=== PATIENT | female | born 1945 ===

== ENCOUNTER 2022-02-06 21:03 | Inpatient (IN) | payer MEDICARE ==
[2022-02-06 22:45] VITALS: BMI 30.1
[2022-02-06] MEDS ORDERED: Ondansetron PF 4 MG/2 ML Vial IVP PRN (23:59)
[2022-02-06] MEDS ORDERED: Acetaminophen 325 MG TAB PO PRN (23:59)
[2022-02-07] MEDS ORDERED: Morphine 2 MG/ML VIAL SLOW IVP PRN (00:01)
[2022-02-07] MEDS ORDERED: HumaLOG 300 UNITS/3 ML VIAL SC PRN ×2 (00:10)
[2022-02-07] MEDS ORDERED: Dextrose 5% in Water 1,000 ML IV PRN (00:10)
[2022-02-07] MEDS ORDERED: Dextrose 50% Abboject 50 ML SYRINGE SLOW IVP PRN (00:10)
[2022-02-07] MEDS ORDERED: hydrALAZINE 20 MG/ML VIAL SLOW IVP PRN ×2 (00:10→07:26)
[2022-02-07] MEDS ORDERED: Enoxaparin Sodium 40 MG/0.4 ML SYRINGE SC SCH (00:30)
[2022-02-07] MEDS: Sodium Chloride 0.9% 1,000 ML IV SCH ×3 (01:14→21:18)
[2022-02-07 07:50] LABS: #Basophils 0.1 thou/uL (0.0-0.2); #Eosinphils 0.2 thou/uL (0.0-0.7); #Lymphocytes 1.3 thou/uL (1.20-3.40); #Monocytes 1.5 thou/uL (0.11-0.59); %Basophils 0.4 % (0.0-1.0); %Eosinophils 1.5 % (0.0-10.0); %Lymphocytes 8.9 % (21.0-51.0); %Monocytes 9.6 % (0.0-10.0); %Neutrophils 79.7 % (42.0-75.0); Hemoglobin 15.1 g/dL (12.0-16.0); Mean Corpuscular HGB CONC 31.5 g/dL (32.0-36.0); Mean Corpuscular Hemoglobin 29.2 pg (27.0-31.0); Mean Corpuscular Volume 92.8 fL (78.0-98.0); Mean Platelet Volume 8.1 fL (7.4-10.4); Platelet Count 171 thou/uL (130-400); RBC Distribution Width 13.4 % (11.5-14.5); Red Blood Cell (RBC) Count 5.15 mill/uL (4.20-5.40); White Blood Cell (WBC) Count 15.1 thou/uL (4.8-10.8)
[2022-02-07 08:08] LABS: Anion Gap 14 mmol/L (10-20); BUN (Urea Nitrogen) 23 mg/dL (9.8-20.1); Calc. Creatinine Clearance 64 mL/min (70-130); Calcium 8.8 mg/dL (7.8-10.44); Carbon Dioxide 24 mmol/L (23-31); Chloride 105 mmol/L (98-107); Estimated GFR 67; Glucose 148 mg/dL (83-110); Sodium 139 mmol/L (136-145)
[2022-02-07] MEDS: Mometasone 100 MCG/PUFF (1 INHALER) INH SCH (18:24)
[2022-02-07] MEDS: traZODone HCl 50 MG TAB PO SCH (21:14)
[2022-02-08 05:54] LABS: #Eosinphils 0.2 thou/uL (0.0-0.7); #Lymphocytes 1.8 thou/uL (1.20-3.40); #Monocytes 0.9 thou/uL (0.11-0.59); #Neutrophils 6.7 thou/uL (1.40-6.50); %Basophils 0.4 % (0.0-1.0); %Eosinophils 1.7 % (0.0-10.0); %Lymphocytes 18.4 % (21.0-51.0); %Monocytes 9.7 % (0.0-10.0); %Neutrophils 69.8 % (42.0-75.0); Hemoglobin 13.2 g/dL (12.0-16.0); Mean Corpuscular HGB CONC 32.1 g/dL (32.0-36.0); Mean Corpuscular Hemoglobin 29.2 pg (27.0-31.0); Mean Platelet Volume 7.8 fL (7.4-10.4); Platelet Count 137 thou/uL (130-400); RBC Distribution Width 13.2 % (11.5-14.5); Red Blood Cell (RBC) Count 4.51 mill/uL (4.20-5.40); White Blood Cell (WBC) Count 9.6 thou/uL (4.8-10.8)
[2022-02-08] MEDS: Levothyroxine Sodium 25 MCG TAB PO SCH (06:04)
[2022-02-08 06:15] LABS: Anion Gap 11 mmol/L (10-20); BUN (Urea Nitrogen) 12 mg/dL (9.8-20.1); Calc. Creatinine Clearance 74 mL/min (70-130); Calcium 8.3 mg/dL (7.8-10.44); Carbon Dioxide 24 mmol/L (23-31); Chloride 109 mmol/L (98-107); Estimated GFR 79; Glucose 103 mg/dL (83-110); Potassium 3.6 mmol/L (3.5-5.1); Sodium 140 mmol/L (136-145)
[2022-02-08] MEDS: Mometasone 100 MCG/PUFF (1 INHALER) INH SCH ×2 (07:04→18:12)
[2022-02-08] MEDS: Sodium Chloride 0.9% 1,000 ML IV SCH ×2 (07:08→19:36)
[2022-02-08] MEDS: Pramipexole Di-HCl 0.125 MG TAB PO SCH (08:44)
[2022-02-08] MEDS: Atorvastatin Calcium 40 MG TAB PO SCH (08:45)
[2022-02-08] MEDS: Clopidogrel Bisulfate 75 MG TAB PO SCH (08:45)
[2022-02-08] MEDS ORDERED: Non-Formulary Item 1 EACH (Fluticasone/Umeclidin/Vilanter [Trelegy Ellipta 100-62.5-25] 1 INH SCH (09:00)
[2022-02-08] MEDS ORDERED: MD-Gastroview 120 ML BOT ONE (14:46)
[2022-02-08] MEDS: traZODone HCl 50 MG TAB PO SCH (20:54)
[2022-02-09] MEDS: Sodium Chloride 0.9% 1,000 ML IV SCH ×2 (02:30→10:49)
[2022-02-09] MEDS: Levothyroxine Sodium 25 MCG TAB PO SCH (06:03)
[2022-02-09 06:25] LABS: #Basophils 0.1 thou/uL (0.0-0.2); #Eosinphils 0.3 thou/uL (0.0-0.7); #Monocytes 0.9 thou/uL (0.11-0.59); #Neutrophils 7.4 thou/uL (1.40-6.50); %Basophils 0.5 % (0.0-1.0); %Eosinophils 2.6 % (0.0-10.0); %Lymphocytes 18.4 % (21.0-51.0); %Monocytes 8.6 % (0.0-10.0); %Neutrophils 69.9 % (42.0-75.0); Hemoglobin 13.2 g/dL (12.0-16.0); Mean Corpuscular HGB CONC 31.7 g/dL (32.0-36.0); Mean Corpuscular Hemoglobin 28.7 pg (27.0-31.0); Mean Corpuscular Volume 90.7 fL (78.0-98.0); Mean Platelet Volume 7.7 fL (7.4-10.4); Platelet Count 165 thou/uL (130-400); Red Blood Cell (RBC) Count 4.61 mill/uL (4.20-5.40); White Blood Cell (WBC) Count 10.6 thou/uL (4.8-10.8)
[2022-02-09 06:48] LABS: Anion Gap 13 mmol/L (10-20); BUN (Urea Nitrogen) 11 mg/dL (9.8-20.1); Calc. Creatinine Clearance 74 mL/min (70-130); Calcium 8.7 mg/dL (7.8-10.44); Carbon Dioxide 24 mmol/L (23-31); Chloride 110 mmol/L (98-107); Estimated GFR 79; Glucose 100 mg/dL (83-110); Potassium 3.8 mmol/L (3.5-5.1); Sodium 143 mmol/L (136-145)
[2022-02-09] MEDS: Mometasone 100 MCG/PUFF (1 INHALER) INH SCH (07:20)
[2022-02-09] MEDS: Clopidogrel Bisulfate 75 MG TAB PO SCH (10:24)
[2022-02-09] MEDS: Atorvastatin Calcium 40 MG TAB PO SCH (10:24)
[2022-02-09] MEDS: Pramipexole Di-HCl 0.125 MG TAB PO SCH (10:24)
[2022-02-09 12:30] VITALS: TEMP 98.1
[2022-02-09 16:34] VITALS: BP 148/74
== END 2022-02-09 17:06 | disposition home or self-care (01) | DRG 389 ==
LOC: SURG B 22:26
PROVIDERS: ADMIT Internal Medicine; ATTEND Internal Medicine
PROC: 0D9670Z Drainage of Stomach with Drainage Device, Via Natural or Artificial Opening (ICD-10-PCS; principal; 2022-02-06)
DX: K56.600 Partial intestinal obstruction, unspecified as to cause (principal); R65.10 Systemic inflammatory response syndrome (SIRS) of non-infectious origin without acute organ dysfunction; Z20.822 Contact with and (suspected) exposure to COVID-19; I10 Essential (primary) hypertension; E11.9 Type 2 diabetes mellitus without complications; E78.5 Hyperlipidemia, unspecified; D72.829 Elevated white blood cell count, unspecified; J44.9 Chronic obstructive pulmonary disease, unspecified; E03.9 Hypothyroidism, unspecified; I69.928 Other speech and language deficits following unspecified cerebrovascular disease; Z90.49 Acquired absence of other specified parts of digestive tract; Z79.899 Other long term (current) drug therapy; Z98.890 Other specified postprocedural states
CPT/HCPCS: 36415; 36416; 74250; 80048; 85025; 94640; J1650; J7050; J7620; Q9963